=== PATIENT | female | born 1965 | race African-American/Black ===

== ENCOUNTER 2024-11-27 11:30 | Emergency (ER) | payer BC ==
[~2024-11-27] VITALS: Ht 165.1 cm; Wt 70.3 kg
[2024-11-27 12:48] LABS: PLATELET COUNT (AUTO) 276 K/uL (179-408); RED BLOOD CELL COUNT(AUTO) 4.36 MIL/uL (3.63-4.92); RED CELL DISTRIBUTION WIDTH 13.5 % (12.3-17.7); WHITE BLOOD COUNT (AUTO) 4.7 K/uL (3.8-11.8)
[2024-11-27 13:01] LABS: CREATININE 0.9 mg/dL (0.6-1.3); SODIUM SERUM 143.0 mmol/L (136-145); UREA NITROGEN, BLOOD 18.0 mg/dL (7-18)
[2024-11-27 13:31] LABS: ASPARTATE AMINOTRANSFERASE 11.0 U/L (15-37); TOTAL PROTEIN, SERUM 6.7 g/dL (6.4-8.2)
[2024-11-27 14:00] VITALS: BP 110/62
[2024-11-27 15:10] VITALS: BP 110/62; TEMP 98.1; O2SAT 100
== END 2024-11-27 15:10 | disposition home or self-care (01) ==
LOC: ER 11:30
DX: R00.0 Tachycardia, unspecified (principal); E88.810 Metabolic syndrome; E78.41 Elevated Lipoprotein(a); Z88.8 Allergy status to other drugs, medicaments and biological substances
CPT/HCPCS: 36415; 83735; 84443; 85025; 93005; A4606; A4663